=== PATIENT | male | born 1985 | race Asian ===

== ENCOUNTER 2023-10-29 07:21 | Emergency (ER) | payer BC, MEDICAID ==
[~2023-10-29] VITALS: Ht 167.6 cm; Wt 95.3 kg
[~2023-10-29 07:21] MED LIST: LINA5TAB PO
[2023-10-29] MEDS ORDERED: GUAI-671 PO (07:44)
[2023-10-29 08:03] VITALS: BP 135/70; TEMP 97.9; O2SAT 98
== END 2023-10-29 08:04 | disposition home or self-care (01) ==
LOC: ER 07:21
DX: U07.1 COVID-19 (principal); E11.9 Type 2 diabetes mellitus without complications; Z79.899 Other long term (current) drug therapy; Z60.2 Problems related to living alone; Z88.1 Allergy status to other antibiotic agents